=== PATIENT | female | born 1995 | race Caucasian/White ===

== ENCOUNTER 2019-05-07 20:35 | Emergency (ER) | payer OTHER ==
[~2019-05-07] VITALS: Ht 162.6 cm; Wt 106.1 kg
[2019-05-07] MEDS ORDERED: PRENTAB9 PO (20:47)
[2019-05-07 21:33] LABS: BASO % 0.4 % (0.0-1.0); EOS # 0.1 10^3/uL (0.0-0.5); EOS % 0.9 % (0.0-3.0); HEMATOCRIT 39.6 % (36.0-47.0); HEMOGLOBIN 13.5 g/dl (12.0-15.5); LYMPH # 3.2 10^3/uL (1.5-5.0); LYMPH % 32.6 % (24.0-44.0); MEAN CORPUSCULAR HEMOGLOBIN 30.6 pg (27.0-33.0); MEAN CORPUSCULAR HGB CONC 34.1 g/dl (32.0-36.5); MEAN CORPUSCULAR VOLUME 89.8 fl (80.0-96.0); MONO # 0.6 10^3/uL (0.0-0.8); MONO % 5.9 % (0.0-5.0); NEUTROPHILS # 5.9 10^3/uL (1.5-8.5); PLATELET COUNT, AUTOMATED 358 10^3/uL (150-450); RED BLOOD COUNT 4.41 10^6/uL (4.00-5.40); WHITE BLOOD COUNT 9.8 10^3/uL (4.0-10.0)
[2019-05-07 22:01] LABS: BLOOD UREA NITROGEN 18 MG/DL (7-18); CARBON DIOXIDE LEVEL 24 MEQ/L (21-32); CHLORIDE LEVEL 107 MEQ/L (98-107); CREATININE FOR GFR 0.62 MG/DL (0.55-1.30); GLOMERULAR FILTRATION RATE > 60.0 (>60); GLUCOSE, FASTING 87 MG/DL (70-100); SODIUM LEVEL 140 MEQ/L (136-145)
[2019-05-07 23:26] LABS: HCG, SERUM QUANTITATIVE 25969 MIU/ML
--- NOTE | 2019-05-07 23:38 | REPVR ---
PROCEDURE INFORMATION: Exam: US First Trimester, Transabdominal Exam date and time: 05/07/2019 10:58 PM Age: 23 years old Clinical indication: Lmp or gestational age (in weeks): 03/11/19; Other: Vaginal bleeding; ; Additional info: Vaginal bleeding, preg 8 wks TECHNIQUE: Imaging protocol: Real-time transabdominal obstetrical ultrasound of the maternal pelvis and a first trimester , less than 14 weeks 0 days, with image documentation. COMPARISON: No relevant prior studies available. FINDINGS: GESTATION: Gestation: No pole or yolk sac is visualized. MATERNAL: Uterus: Two cystic areas are seen in the fundal endometrium measuring 1.9 cm on the right and 1.6 cm on the left. Remainder of the endometrium appears mildly thickened but otherwise unremarkable. No uterine masses. Cervix: Unremarkable. Right adnexa: Right ovary and adnexa are not clearly visualized. Left adnexa: Left ovary and adnexa are not clearly visualized. Intraperitoneal: No obvious hydrosalpinx or pelvic free fluid. IMPRESSION: Two cystic areas in the fundal endometrium without internal pole or yolk sac. Appearance is nonspecific but could be blighted ova. No other signs of the living intrauterine or ectopic , but the adnexa are not well visualized. Electronically signed by: Curt Lancaster On 05/07/2019 23:37:49 PM
[2019-05-08 00:23] VITALS: BP 118/62
== END 2019-05-08 00:33 | disposition home or self-care (01) ==
LOC: M ED 20:35
DX: O20.8 Other hemorrhage in early pregnancy (principal); O34.80 Maternal care for other abnormalities of pelvic organs, unspecified trimester

== ENCOUNTER → 2019-05-10 | Outpatient (CLI) | payer OTHER ==
[~2019-05-10] MED LIST: PRENTAB9 PO
== END ==
LOC: M LAB 08:39
PROVIDERS: ATTEND Physician Assistant
DX: O20.9 Hemorrhage in early pregnancy, unspecified (principal); Z3A.00 Weeks of gestation of pregnancy not specified

== ENCOUNTER → 2019-05-16 | Outpatient (CLI) | payer OTHER | LOC: M LAB 07:41 | PROVIDERS: ATTEND Obstetrics & Gynecology | DX: O20.9 Hemorrhage in early pregnancy, unspecified (principal); Z3A.00 Weeks of gestation of pregnancy not specified ==

== ENCOUNTER → 2019-05-24 | Outpatient (CLI) | payer OTHER | LOC: M LAB 11:46 | PROVIDERS: ATTEND Obstetrics & Gynecology | DX: Z34.90 Encounter for supervision of normal pregnancy, unspecified, unspecified trimester (principal); Z3A.00 Weeks of gestation of pregnancy not specified ==

== ENCOUNTER → 2019-05-31 | Outpatient (CLI) | payer OTHER ==
[2019-05-31 18:36] LABS: APPEARANCE, URINE CLOUDY (CLEAR); BACTERIA, URINE AUTO 1+ (NEGATIVE); BILIRUBIN, URINE AUTO NEGATIVE (NEGATIVE); BLOOD, URINE BLOOD NEGATIVE (NEGATIVE); COLOR, URINE YELLOW (YELLOW); GLUCOSE, URINE (UA) AUTO NEGATIVE (NEGATIVE); KETONE, URINE AUTO NEGATIVE (NEGATIVE); LEUKOCYTE ESTERASE, URINE AUTO 3+ (NEGATIVE); NITRITE, URINE AUTO NEGATIVE (NEGATIVE); PROTEIN, URINE AUTO NEGATIVE (NEGATIVE); RBC, URINE AUTO 13 /HPF (0-3); SPECIFIC GRAVITY URINE AUTO 1.026 (1.002-1.035); SQUAMOUS EPITHELIAL CELL UR AU 22 /HPF (0-6); UROBILINOGEN, URINE AUTO 0.2 mg/dL (0.0-2.0); WBC, URINE AUTO 55 /HPF (0-3)
== END ==
LOC: M LAB 16:36
PROVIDERS: ATTEND Obstetrics & Gynecology
DX: N39.0 Urinary tract infection, site not specified (principal)

== ENCOUNTER → 2019-06-07 | Outpatient (CLI) | payer OTHER | LOC: M LAB 12:23 | PROVIDERS: ATTEND Obstetrics & Gynecology | DX: O02.1 Missed abortion (principal) ==

== ENCOUNTER 2019-10-14 16:36 | Emergency (ER) | payer OTHER ==
[~2019-10-14] VITALS: Ht 162.6 cm; Wt 117.1 kg
[2019-10-14 16:37] VITALS: BP 135/81
[2019-10-14] MEDS ORDERED: CELE20TA PO (16:44)
[2019-10-14] MEDS ORDERED: CLIN150C14 PO (17:16)
== END 2019-10-14 17:23 | disposition home or self-care (01) ==
LOC: M ED 16:36
DX: L08.89 Other specified local infections of the skin and subcutaneous tissue (principal); F17.218 Nicotine dependence, cigarettes, with other nicotine-induced disorders; Z88.0 Allergy status to penicillin; Z88.5 Allergy status to narcotic agent; Z88.8 Allergy status to other drugs, medicaments and biological substances

== ENCOUNTER 2019-11-15 15:41 | Emergency (ER) | payer OTHER ==
[~2019-11-15] VITALS: Ht 162.6 cm; Wt 116.4 kg
[2019-11-15 15:41] VITALS: BP 131/82
[~2019-11-15 15:41] MED LIST changes: +CELE20TA PO; +CLIN150C14 PO
[2019-11-15] MEDS ORDERED: CYCLOBENZAPRINE 10MG TABLET PO ONE (16:45)
[2019-11-15] MEDS ORDERED: IBUPROFEN 800 MG TAB PO ONE (16:45)
[2019-11-15] MEDS ORDERED: CYCL-707 PO (17:09)
== END 2019-11-15 17:17 | disposition home or self-care (01) ==
LOC: M ED 15:41
DX: S96.911A Strain of unspecified muscle and tendon at ankle and foot level, right foot, initial encounter (principal); V49.40XA Driver injured in collision with unspecified motor vehicles in traffic accident, initial encounter; F17.200 Nicotine dependence, unspecified, uncomplicated; Z79.899 Other long term (current) drug therapy; Z88.0 Allergy status to penicillin; Z88.6 Allergy status to analgesic agent; Z88.8 Allergy status to other drugs, medicaments and biological substances; Y92.9 Unspecified place or not applicable; Y99.9 Unspecified external cause status; Y93.9 Activity, unspecified

== ENCOUNTER 2019-11-23 07:33 | Emergency (ER) | payer OTHER ==
[~2019-11-23] VITALS: Ht 162.6 cm; Wt 118.0 kg
[~2019-11-23 07:33] MED LIST changes: +CYCL-707 PO
[2019-11-23] MEDS ORDERED: ZOLO25TA PO (07:40)
[2019-11-23] MEDS ORDERED: NS 1,000 ML IV ONE (08:00)
[2019-11-23 08:24] LABS: BASO # 0.1 10^3/uL (0.0-0.2); BASO % 0.6 % (0.0-1.0); EOS # 0.2 10^3/uL (0.0-0.5); EOS % 2.6 % (0.0-3.0); HEMATOCRIT 41.9 % (36.0-47.0); HEMOGLOBIN 14.3 g/dl (12.0-15.5); LYMPH # 2.5 10^3/uL (1.5-5.0); LYMPH % 32.6 % (24.0-44.0); MEAN CORPUSCULAR HEMOGLOBIN 30.4 pg (27.0-33.0); MEAN CORPUSCULAR HGB CONC 34.1 g/dl (32.0-36.5); MEAN CORPUSCULAR VOLUME 89.1 fl (80.0-96.0); MONO # 0.6 10^3/uL (0.0-0.8); MONO % 7.3 % (0.0-5.0); NEUTROPHILS # 4.4 10^3/uL (1.5-8.5); NEUTROPHILS % 56.5 % (36.0-66.0); PLATELET COUNT, AUTOMATED 388 10^3/uL (150-450); WHITE BLOOD COUNT 7.7 10^3/uL (4.0-10.0)
[2019-11-23 08:54] LABS: ALBUMIN 3.3 GM/DL (3.2-5.2); ALT/SGPT 31 U/L (12-78); BILIRUBIN,DIRECT < 0.1 MG/DL (0.0-0.2); BILIRUBIN,TOTAL 0.3 MG/DL (0.2-1.0); LIPASE 179 U/L (73-393); TOTAL PROTEIN 7.1 GM/DL (6.4-8.2)
[2019-11-23 10:22] VITALS: BP 115/64
--- NOTE | 2019-11-23 10:31 | REP ---
PELVIC SONOGRAPHY: HISTORY: Suprapubic pain. Left pelvic pain. FINDINGS: Transvaginal and transabdominal scanning are performed. Uterine dimensions are normal at the 8.6 x 3.5 x 4.5 cm. Endometrial echo is 1.0 cm thick. There is a hyperechoic area 9 mm in diameter within the endometrium. Possible polyp. The visualized bladder finch are smooth. There is free fluid in the cul-de-sac. Right ovary measures 2.4 x 1.9 x 2.7 cm. There is a 1.2 cm follicle cyst in the right ovary. Doppler flow is present in the right ovary with resistive index 0.44. The left ovary measures 3.0 x 2.6 x 2.4 cm. There is a 2.3 x 1.2 x 1.3 cm cysts in the left ovary. Doppler flow is present in the left ovary with resistive index 0.53. There is free fluid adjacent to the left ovary in the left adnexa. IMPRESSION: Free fluid in the cul-de-sac the left more so than right. 2.3 cm cyst left ovary, 1.2 cm follicle cyst right ovary. Possible 9 mm endometrial polyp. Otherwise negative. Electronically Signed by Giancarlo Pedraza MD 11/23/2019 12:49 P
--- NOTE | 2019-11-23 19:23 | ED PDOC ---
Post-Departure Follow-Up ft maria luz garcia faxed fomral report of pelvis us for fu Wily Dalal MD Nov 23, 2019 19:23
== END 2019-11-23 10:27 | disposition home or self-care (01) ==
LOC: M ED 07:33
DX: N83.291 Other ovarian cyst, right side (principal); N83.292 Other ovarian cyst, left side; N84.0 Polyp of corpus uteri; F41.9 Anxiety disorder, unspecified; Z79.899 Other long term (current) drug therapy; Z88.0 Allergy status to penicillin; Z88.5 Allergy status to narcotic agent; Z88.8 Allergy status to other drugs, medicaments and biological substances; F17.210 Nicotine dependence, cigarettes, uncomplicated

== ENCOUNTER → 2019-12-06 | Outpatient (REF) ==
[~2019-12-06] MED LIST changes: +COLA100C5 PO; +META0.52 PO; +MONU5.636 PO; +ZOLO25TA PO
== END ==
LOC: M EMP 09:39
PROVIDERS: ATTEND Family Medicine
DX: Z20.828 Contact with and (suspected) exposure to other viral communicable diseases (principal)

== ENCOUNTER → 2019-12-06 | Outpatient (REF) | payer OTHER | LOC: M SFHCLUC 16:18 | PROVIDERS: ATTEND Nurse Practitioner Family | DX: J02.9 Acute pharyngitis, unspecified (principal) ==

== ENCOUNTER 2020-02-01 02:29 | Emergency (ER) | payer OTHER ==
[~2020-02-01] VITALS: Ht 162.6 cm; Wt 122.3 kg
[~2020-02-01 02:29] MED LIST changes: -COLA100C5 PO; -META0.52 PO; -MONU5.636 PO
[2020-02-01] MEDS ORDERED: COLA100C5 PO (07:29)
[2020-02-01] MEDS ORDERED: META0.52 PO (07:53)
[2020-02-01 07:58] VITALS: BP 118/81
--- NOTE | 2020-02-01 08:10 | REPVR ---
PROCEDURE INFORMATION: Exam: US First Trimester, Transabdominal Exam date and time: 02/01/2020 7:49 AM Age: 24 years old Clinical indication: Gestational age (in weeks): 13; Other: Constipation; ; Additional info: Assess heart rate TECHNIQUE: Imaging protocol: Real-time transabdominal obstetrical ultrasound of the maternal pelvis and a first trimester , less than 14 weeks 0 days, with image documentation. COMPARISON: US PELVIC NON-OB COMPLETE 11/23/2019 9:18:58 AM FINDINGS: Gestation: A gestational sac is present within the uterus. A single pole is present within the gestational sac. Embryonic/ heart rate: heart rate measures 142 beats/min. Placenta: Unremarkable. No subchorionic hemorrhage. Amniotic fluid: Amniotic fluid is normal for gestational age. BIOMETRY: Gestational age (AUA): 13 weeks 3 days. [employer]-Rump length: 71 mm. MATERNAL: Uterus: Unremarkable as visualized. Cervix: Not visualized. Right adnexa: A 1.7 cm round hypoechoic cyst is present at the right adnexa, probably a corpus luteum. Left adnexa: The left adnexa is imaged, however the left ovary is not identified. Intraperitoneal space: No free intraperitoneal fluid is imaged. IMPRESSION: Single viable intrauterine with estimated gestational age by ultrasound of 13 weeks 3 days. Electronically signed by: Dayron Borges On 02/01/2020 08:10:05 AM
[2020-02-01] MEDS ORDERED: MONU5.636 PO (15:39)
== END 2020-02-01 08:00 | disposition home or self-care (01) ==
LOC: M ED 02:29
DX: O99.611 Diseases of the digestive system complicating pregnancy, first trimester (principal); O23.91 Unspecified genitourinary tract infection in pregnancy, first trimester; Z3A.13 13 weeks gestation of pregnancy; Z88.0 Allergy status to penicillin; Z88.6 Allergy status to analgesic agent; Z79.899 Other long term (current) drug therapy

== ENCOUNTER 2020-03-19 18:07 | Emergency (ER) | payer OTHER ==
[~2020-03-19] VITALS: Ht 162.6 cm; Wt 126.8 kg
[~2020-03-19 18:07] MED LIST changes: +COLA100C5 PO; +META0.52 PO; +MONU5.636 PO
[2020-03-19] MEDS ORDERED: ASPI81CH33 PO (18:13)
[2020-03-19] MEDS ORDERED: PREN27TA3 (18:13)
[2020-03-19] MEDS ORDERED: SERT50TA29 (18:13)
[2020-03-19 18:34] LABS: APPEARANCE, URINE CLOUDY (CLEAR); BACTERIA, URINE AUTO 1+ (NEGATIVE); BILIRUBIN, URINE AUTO NEGATIVE (NEGATIVE); BLOOD, URINE BLOOD NEGATIVE (NEGATIVE); COLOR, URINE YELLOW (YELLOW); GLUCOSE, URINE (UA) AUTO 1+ mg/dL (NEGATIVE); KETONE, URINE AUTO TRACE mg/dL (NEGATIVE); LEUKOCYTE ESTERASE, URINE AUTO 1+ (NEGATIVE); MUCUS, URINE SMALL (NEGATIVE); NITRITE, URINE AUTO NEGATIVE (NEGATIVE); PROTEIN, URINE AUTO NEGATIVE (NEGATIVE); RBC, URINE AUTO 2 /HPF (0-3); SPECIFIC GRAVITY URINE AUTO 1.032 (1.002-1.035); SQUAMOUS EPITHELIAL CELL UR AU 13 /HPF (0-6); WBC, URINE AUTO 34 /HPF (0-3)
[2020-03-19] MEDS ORDERED: MACR100C43 PO ×2 (19:49→20:19)
[2020-03-19] MEDS ORDERED: NITROFURANTOIN (MACROBID) 100 MG CAP PO ONE (20:00)
[2020-03-19 20:11] VITALS: BP 135/82
== END 2020-03-19 20:26 | disposition home or self-care (01) ==
LOC: M ED 18:07
DX: O23.12 Infections of bladder in pregnancy, second trimester (principal); Z88.8 Allergy status to other drugs, medicaments and biological substances; Z88.6 Allergy status to analgesic agent; Z79.899 Other long term (current) drug therapy

== ENCOUNTER 2020-07-17 02:03 | Outpatient (CLI) | payer OTHER ==
[~2020-07-17] VITALS: Ht 162.6 cm; Wt 135.3 kg
[~2020-07-17 02:03] MED LIST changes: +ASPI81CH33 PO; -CLIN150C14 PO; +CLIN150C15 PO; +MACR100C43 PO; +PREN1TAB11 PO; +PREN27TA3; +SERT50TA29; +ZOLO50TA PO
[2020-07-17 02:26] VITALS: BP 122/78
--- NOTE | 2020-07-17 04:37 | IPNPDOC ---
Text Note Date of Service The patient was seen on 07/17/20. NOTE 24yo at 36+4wks presenting for c/o leaking fluid since 0100 this morning when she awoke to the bed being wet. She denies VB, abnml vaginal discharge, DFM, or ctx's. c/b: Obesity (NOB BMI 45.5) Anxiety on zoloft Polyhydamnios Vitals: normotensive, afebrile NST: reactive [place]: irreg ctxs patient not feeling PE: GEN: well-appearing, resting comfortably in bed in NAD HEENT: NC/AT, airway patent and self-maintained CARDS: well-perfused RESP: no exaggerated respiratory effort appreciated ABD: obese, gravid, nontender : SVE notable for significant ivett infection, negative pooling, negative valsalva, nitrizine negative, cervix closed/thick/high Ext: no edema TAUS: Cephalic presentation, ALFONSO 26.65cm, +FM, +FCA at 150bpm, anterior placenta A/P: 24yo at 36+4wks presenting for c/o leaking fluid. Membranes found to be intact. Exam concerning for candidal infection. -Diflucan 150mg po now -Patient counseled on strict FKCs, labor precautions -Patient to f/u for BPP as scheduled -Patient to f/u for COB appt as scheduled All questions answered. VS,Fishbone, I+O VS, Fishbone, I+O Vital Signs Date Time Temp Pulse Resp B/P (MAP) Pulse Ox O2 Delivery O2 Flow Rate FiO2 07/17/20 02:26 98.0 105 18 122/78 (93) ALDO DAVID DO Jul 17, 2020 04:37
== END 2020-07-17 05:00 | disposition home or self-care (01) ==
LOC: M LDO 02:03
DX: O26.893 Other specified pregnancy related conditions, third trimester (principal); B37.3 Candidiasis of vulva and vagina; Z3A.36 36 weeks gestation of pregnancy
CPT/HCPCS: 59025; G0378; G0463

== ENCOUNTER 2020-07-31 23:07 | Inpatient (IN) | payer OTHER ==
[~2020-07-31] VITALS: Ht 162.6 cm; Wt 133.7 kg
[2020-07-31 23:26] VITALS: BP 127/77
[2020-08-01] VITALS (7 sets, daily range): BP systolic 118–138; BP diastolic 57–77
[2020-08-01] MEDS ORDERED: LACTATED RINGER'S 1000 ML IV ONE (00:10)
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
[2020-08-01 00:58] LABS: HEMATOCRIT 36.4 % (36.0-47.0); HEMOGLOBIN 11.5 g/dl (12.0-15.5); MEAN CORPUSCULAR HEMOGLOBIN 27.5 pg (27.0-33.0); MEAN CORPUSCULAR HGB CONC 31.6 g/dl (32.0-36.5); MEAN CORPUSCULAR VOLUME 87.1 fl (80.0-96.0); PLATELET COUNT, AUTOMATED 361 10^3/uL (150-450); RED BLOOD COUNT 4.18 10^6/uL (4.00-5.40); WHITE BLOOD COUNT 14.8 10^3/uL (4.0-10.0)
[2020-08-01] MEDS ORDERED: FENTANYL 2MCG/ML ROPIVACAINE 0.2% IN 0.9% NACL 100ML IVBAG As Ordered ONE (01:55)
[2020-08-01] MEDS: LR 1,000 ML IV SCH ×2 (02:30→08:06)
[2020-08-01] MEDS ORDERED: ePHEDrine SULFATE 25 MG/5 ML(5MG/ML) SYRINGE As Ordered ONE (03:17)
[2020-08-01] MEDS ORDERED: EPIDURAL COMMENT XX SCH (03:30)
[2020-08-01] MEDS ORDERED: EPIDURAL/PCA KEYS XX PRN (03:30)
[2020-08-01] MEDS ORDERED: ONDANSETRON 4MG/2ML VIAL IV PRN (03:30)
[2020-08-01] MEDS ORDERED: ePHEDrine SULFATE 25 MG/5 ML(5MG/ML) SYRINGE IV PRN (03:30)
[2020-08-01] MEDS ORDERED: LACTATED RINGER'S 1000 ML IV PRN (03:30)
[2020-08-01] MEDS ORDERED: REFRIGERATOR IV KEYS XX PRN (03:30)
[2020-08-01] MEDS ORDERED: diphenhydrAMINE 50MG/ML VIAL (J1200) IV PRN (03:30)
[2020-08-01] MEDS ORDERED: FENTANYL/ROPIVACAINE/NACL BAG 100 ML EPIDURAL SCH (03:30)
[2020-08-01] MEDS ORDERED: NALOXONE INJ 0.4MG/1ML VIAL (J2310 PER 1MG) IV PRN (03:30)
--- NOTE | 2020-08-01 09:41 | IPNPDOC ---
Obstetrical Progress Note Date of Service Aug 01, 2020 Subjective Received report and assumed care of mychal Ho 24yo at 38+5wks who was admitted last PM for early labor. Pt is comfortable with an epidural in place. She did SROM at 0600 this AM with meconium - Peds has been notified. Pt has no concerns at this time. Objective O: VSS, afebrile FHR 125, moderate variability, + accels, no decels observed; fetus is difficult to keep on monitor d/t body habitus CTX by TOCO q 1-3 minutes VE: C/C/+1 Meconium fluid still present on chux Vital Signs Date Time Temp Pulse Resp B/P (MAP) Pulse Ox O2 Delivery O2 Flow Rate FiO2 08/01/20 02:21 97.5 84 16 138/77 (97) Assessment Heart Rate Tracing: Category I Tocometer Contractions: Yes Frequency: regular Sterile Vaginal Examination Postion/Presentation: Cephalic presentation Assessment and Plan Status: Reassuring Group B Streptococcus: Negative Anticipate: Vaginal Delivery Additional Comments A: 24yo at 38+5wks, currently in active labor with Category I FHT, but difficult to monitor d/t body habitus. P: Anticipate Continue to monitor maternal/ status Will allow pt to labor down consult with OB as indicated SENA MULLEN CNM Aug 01, 2020 09:41
[2020-08-01] MEDS ORDERED: OXYTOCIN 30 UNITS IN 0.9% NaCl 500ML IV BAG (J2590) As Ordered ONE (12:52)
[2020-08-01] MEDS ORDERED: OXYTOCIN DRIP 30 UNITS in IV 1 EA IV SCH (13:28)
[2020-08-01] MEDS ORDERED: DOCUSATE SODIUM 100MG CAPSULE PO PRN (13:30)
[2020-08-01] MEDS ORDERED: DIBUCAINE 1% OINTMENT 30GM TOP PRN (13:30)
[2020-08-01] MEDS ORDERED: ACETAMINOPHEN TAB 650MG DOSE (2X325MG) PO PRN (13:30)
--- NOTE | 2020-08-01 14:10 | DNPDOC ---
[facility] Delivery Note Delivery Note DATE OF DELIVERY: [id number] at 1251 PREDELIVERY DIAGNOSIS: 38+5 weeks' gestation and labor. POST DELIVERY DIAGNOSIS: Delivered. PROCEDURE: Spontaneous Vaginal Delivery PARALEGAL: SAMI Mullen ANESTHESIA: Epidural ESTIMATED BLOOD LOSS: 200 mL. FINDINGS: 7 pound 0 ounce (3180g) female , Score 5/8, nuchal cord times 1. DELIVERY SUMMARY: Georgia is a 24yo admitted in early labor last PM, SROM with Meconium at 0600. Her labor progressed well to C/C/+1, allowed to labor down to C/C/+2 when she felt rectal pressure and urge to push. Pt pushed effectively to deliver a viable female over a protected perineum. head delivered FRANCISCO and restituted to LOT. Nuchal cord x1, loose, and reduced with ease. Right anterior shoulder delivered with ease, followed by left posterior shoulder, then remainder of body delivered to maternal abdomen where she was dried and stimulated. had good tone, but poor cry, so cord was clamped x2, cut by FOB, and taken to warmer for assessment. Placenta delivered spontaneously and appeared intact, 3VC; pitocin bolus started. Fundus firm and bleeding WNL; EBL 200mL. Upon inspection of vagina, perineum and cervix, a shallow 2nd degree perineal laceration noted and repaired in usual fashion with 3-0 vicryl rapide; hemostasis achieved. Infant returned to mom, family bonding well, anticipate uncomplicated PP Course. SENA MULLEN CNM Aug 01, 2020 14:10
[2020-08-01] MEDS: IBUPROFEN 800 MG TAB PO PRN (19:46)
[2020-08-01] MEDS: SERTRALINE 100 MG TAB PO SCH (19:46)
[2020-08-02] MEDS: IBUPROFEN 800 MG TAB PO PRN (05:28)
[2020-08-02 06:04] VITALS: BP 142/77
--- NOTE | 2020-08-02 06:44 | IPNPDOC ---
Progress Note Date of Service: Aug 02, 2020 Progress Note Ms. Mcallister is a 24 yo G2 now P1 who underwent an uncomplicated yesterday early afternoon after being admitted for active labor. She is recovering on the unit. No acute events overnight. This morning Georgia reports feeling well. She is ambulating, voiding, tolerating a regular diet, has minimal pain, and minimal lochia. Vitals - VSS, afebrile normotensive, non tachycardic General - AAOX3, sitting up in bed, pleasant and conversant, NAD Abdomen - Fundus firm at U-2. No fundal tenderness Extremities - No edema Urine output - appropriate Georgia is doing well and is making an appropriate recovery. Continue to encourage ambulation and . Continue routine care. Anticipate discharge home tomorrow. Denisse Andrade DO VS, I&O, 24H, Fishbone Vital Signs/I&O Vital Signs Date Time Temp Pulse Resp B/P (MAP) Pulse Ox O2 Delivery O2 Flow Rate FiO2 08/02/20 06:04 96.9 71 16 142/77 (98) I&O- Last 24 Hours up to 6 AM 08/02/20 06:00 Output Total 200 ml Balance -200 ml DENISSE ANDRADE DO Aug 02, 2020 06:44
[2020-08-02] MEDS: PRENATAL VITAMINS CHEWABLE TABLET PO SCH (08:29)
[2020-08-02] MEDS: IBUPROFEN 600MG TAB PO PRN ×2 (12:13→23:13)
[2020-08-02] MEDS: ACETAMINOPHEN 500 MG TAB PO PRN (17:40)
[2020-08-02 18:00] VITALS: BP 113/63
[2020-08-02] MEDS: SERTRALINE 100 MG TAB PO SCH (20:54)
[2020-08-03] MEDS: ACETAMINOPHEN 500 MG TAB PO PRN (02:44)
[2020-08-03 05:46] VITALS: BP 132/82
--- NOTE | 2020-08-03 07:38 | OBDS ---
[facility] Obstetrical Discharge Sum. Obstetrical Discharge Summary Date: Aug 03, 2020 : 2 Term: 1 Pre-term: 0 Abortions: 1 Livin Infant Sex: Female Weight: pounds (7), ounces (0), grams (3180) Anesthesia: Regional Anesthesia (Epidural) A/P, Post Course List any complications Admission diagnosis: Labor Discharge diagnosis: Delivered Condition at Discharge: Stable Discharge Instructions: Discharged to home with return and safety precautions. Activity: Ad Marilin; rest as needed.. Diet: Regular Medications: Routine PP meds and mini-pill at [facility] Follow-up: routine PP appointment at 6 weeks. SENA MULLEN CNM Aug 03, 2020 07:38
[2020-08-03] MEDS ORDERED: ACET-683 PO (07:57)
[2020-08-03] MEDS ORDERED: IBUP80TA PO (07:57)
--- NOTE | 2020-08-03 08:00 | IPNPDOC ---
Progress Note Date of Service: Aug 03, 2020 Day#: 2 Progress Note SUBJECT: Ms. Mcallister is a 24 yo G2 now P1 who is s/p uncomplicated , now PP Day #2. She is recovering on the unit. No acute events overnight. This morning Georgia reports feeling well. She is ambulating, voiding, tolerating a regular diet, has minimal pain, and minimal lochia. Currently formula feeding her . OBJECTIVE: Vitals - VSS, afebrile normotensive, non tachycardic General - AAOX3, sitting up in bed, pleasant and conversant, NAD Abdomen - Fundus firm at U-2. No fundal tenderness Extremities - mild pedal edema Lochia - scant ASSESSMENT: PP Day #2, normal involution, stable and progressing well. PLAN: 1. Discharge to home today. 2. Tylenol and Motrin for pain. 3. Encourage pumping and providing infant expressed milk then formula; encouraged frequent ambulation. 4. Minipill for contraception for now. 5. Routine PP visit in 6 weeks in clinic. 6. Discussed return precautions at length. VS, I&O, 24H, Fishbone Vital Signs/I&O Vital Signs Date Time Temp Pulse Resp B/P (MAP) Pulse Ox O2 Delivery O2 Flow Rate FiO2 08/03/20 05:46 97.2 97 16 132/82 (99) 98 Room Air SENA MULLEN CNM Aug 03, 2020 08:00
[2020-08-03] MEDS: PRENATAL VITAMINS CHEWABLE TABLET PO SCH (08:30)
== END 2020-08-03 12:30 | disposition home or self-care (01) | DRG 807 ==
LOC: M LDO 23:07 → M LDI 08-01 00:14 → M OBS 08-01 15:35
PROVIDERS: ADMIT Obstetrics & Gynecology; ATTEND Registered Nurse Maternal Newborn
PROC: 10E0XZZ Delivery of Products of Conception, External Approach (ICD-10-PCS; principal; 2020-08-01)
PROC: 0KQM0ZZ Repair Perineum Muscle, Open Approach (ICD-10-PCS; 2020-08-01)
DX: O69.81X0 Labor and delivery complicated by cord around neck, without compression, not applicable or unspecified (principal); Z37.0 Single live birth; Z3A.38 38 weeks gestation of pregnancy; O70.1 Second degree perineal laceration during delivery